=== PATIENT | male | born 1975 | race Caucasian/White ===

== ENCOUNTER 2017-08-15 20:02 | Emergency (ER) | payer BC, OTHER ==
[~2017-08-15] VITALS: Ht 167.6 cm; Wt 98.6 kg
[~2017-08-15 20:02] MED LIST: CITA40TA12 PO
[2017-08-15 20:05] VITALS: Ht 167.6 cm; Wt 98.6 kg
[2017-08-15] MEDS ORDERED: CLINDAMYCIN 150MG HOME PACK PO ONE (20:30)
[2017-08-15] MEDS ORDERED: CLIN300C2 PO (20:36)
--- NOTE | 2017-08-15 20:37 | EMERGENCY ROOM VISIT NOTE ---
History First contact with patient: 20:10 Chief Complaint: DENTAL PAIN Stated Complaint: GUM PAIN Nursing Triage Summary: pain to left bottom, unable to get into dentist History of Present Illness The patient is a 41 year old male who presents to the Emergency Room with complaints of dental pain. The patient reports that he has had some left lower dental pain for the past few weeks which has worsened over the past few days. He reports increased swelling to the left lower gums. He has been trying to find a dentist that takes his insurance. He does report a history of a dental abscess. He states that he has a broken off tooth in the area of the pain and swelling. He denies any fevers/chills, difficulty breathing or difficulty swallowing. He rates his discomfort a 3/10 but does state that he occasionally has more sharp pains. Review of Systems A complete 10 point review of systems was reviewed with the patient with pertinent positives and negatives as per history of present illness. All else were negative. Past Medical/Surgical History Medical Problems: (1) Anxiety (2) Asthma (3) Chronic sinus infection Family History Diabetes mellitus Heart disease Hypertension Social History Smoking Status: Never Smoker Alcohol Use: heavy Marital Status: single Housing Status: lives alone Occupation Status: employed Current/Historical Medications Scheduled Clindamycin Hcl (Cleocin), 300 MG PO QID Physical Exam Vital Signs Date Time Temp Pulse Resp B/P (MAP) Pulse Ox O2 Delivery O2 Flow Rate FiO2 08/15/17 20:05 37.0 122 18 165/79 97 Room Air Physical Exam VITALS: Vitals are noted on the nurse's note and reviewed by myself. Vital signs stable. GENERAL: This is a 41-year-old male, in no acute distress, nondiaphoretic, well- developed well-nourished. EARS: External auditory canals clear, tympanic membranes pearly camacho without erythema or effusion bilaterally. EYES: Pupils equal round and reactive to light and accommodation. MOUTH: Mucous membranes moist. There is a broken off left lower molar with surrounding erythema and edema. There is tenderness to palpation of the left lower gums. No tenderness of the floor of the mouth. No facial swelling. NECK: Supple without nuchal rigidity. No lymphadenopathy. HEART: Regular rate and rhythm without murmurs gallops or rubs. LUNGS: Clear to auscultation bilaterally without wheezes, rales or rhonchi. NEURO: Patient was alert and oriented to person place and time. Medical Decision & Procedures Medical Decision Differential diagnosis includes dental abscess, Stanley's angina, among others. The patient was evaluated as above. There is no evidence of Stanley's angina on exam. The patient will be placed on clindamycin due to penicillin allergy. He was instructed to follow-up with a dentist for definitive care. He will return for facial swelling, fevers, difficulty breathing or difficulty swallowing. He verbalized understanding of my assessment and treatment plan and was discharged home in good condition. Medication Reconcilliation Current Medication List: was personally reviewed by me Blood Pressure Screening Patient's blood pressure: Elevated blood pressure Blood pressure disposition: Elevated BP felt to be situational Impression Primary Impression: Dental infection Departure Information Dispostion Home / Self-Care Condition GOOD Prescriptions Clindamycin Hcl (CLEOCIN) 300 Mg Cap 300 MG PO QID for 9 Days, #36 CAP Prov: Corina Lobo ., MERLY 08/15/17 Referrals No Doctor, Assigned (PCP) Patient Instructions My New [facility] Additional Instructions You have been treated in the Emergency Department for Dental Pain. You were prescribed clindamycin to be taken 4 times daily for a total of 10 days. This is an antibiotic. All antibiotics have the potential to cause diarrhea. Stop this medication and contact a medical provider if you were to develop any significant adverse side effects including: wheezing, shortness of breath, passing out, vomiting, or a diffuse rash. Always take antibiotics as directed and COMPLETE the ENTIRE course regardless of the improvement of your symptoms. For pain control, you can use the following [id number] medicines (if >12 yo): - Regular strength (325mg/tab) Tylenol (acetaminophen) 2 tabs every 4-6 hours as needed. Do not exceed 12 tablets in a 24 hour period. Avoid taking more than 4 grams (4000 mg) of Tylenol per day. This includes any other sources of acetaminophen you may take on a regular basis. - Regular strength (200 mg/tab) Advil (ibuprofen) 1-2 tabs every 4-6 hours as needed. Do not exceed a dose of 3200 mg per day. Refrain from smoking cigarettes or using chewing tobacco until you have been evaluated by your dentist. Keeping beverages lukewarm and consuming soft foods can decrease your pain. Warm compresses over the affected area may offer some relief. You MUST seek evaluation of your dental pain by a dentist following your visit to the Emergency Department. The Emergency Department is not capable of treating dental issues long-term. You should call your dentist as soon as possible to make an appointment for evaluation of your dental pain. Return to the emergency department if you develop the following symptoms despite treatment course outlined above: fever, intractable pain, increased redness, swelling, or purulent discharge.
[2017-08-15 20:54] VITALS: BP 143/93; PULSE 87; TEMP 37; O2SAT 98
== END 2017-08-15 20:56 | disposition home or self-care (01) ==
LOC: C.EDB 20:03 → C.EDD 20:56
DX: K04.7 Periapical abscess without sinus (principal); F41.9 Anxiety disorder, unspecified; J45.909 Unspecified asthma, uncomplicated; Z83.3 Family history of diabetes mellitus; Z82.49 Family history of ischemic heart disease and other diseases of the circulatory system

== ENCOUNTER 2017-09-08 09:25 | Emergency (ER) | payer OTHER ==
[~2017-09-08] VITALS: Ht 167.6 cm; Wt 101.0 kg
[2017-09-08 09:45] VITALS: TEMP 36.8; Ht 167.6 cm; Wt 101.0 kg
[2017-09-08] MEDS ORDERED: BUSP1TAB46 PO (10:19)
[2017-09-08 11:11] LABS: BASO % 0.3 %; BASO ABS # 0.02 K/uL (0-0.2); EOS ABS # 0.13 K/uL (0-0.5); HEMATOCRIT 47.7 % (42-52); HEMOGLOBIN 16.9 g/dL (14.0-18.0); IG# 0.02 K/uL (0.00-0.02); LYMPH % 21.8 %; LYMPH ABS # 1.42 K/uL (1.2-3.4); MEAN CELL VOLUME 90.5 fL (80-100); MEAN CORPUSCULAR HEMOGLOBIN 32.1 pg (25-34); MEAN CORPUSCULAR HGB CONC 35.4 g/dl (32-36); MEAN PLATELET VOLUME 10.1 fL (7.4-10.4); MONO ABS # 0.52 K/uL (0.11-0.59); NEUT % 67.6 %; NEUT ABS # 4.41 K/uL (1.4-6.5); PLATELET COUNT 188 K/uL (130-400); RED CELL DISTRIBUTION WIDTH CV 13.2 % (11.5-14.5); RED CELL DISTRIBUTION WIDTH SD 43.3 fL (36.4-46.3); WHITE BLOOD COUNT 6.52 K/uL (4.8-10.8)
[2017-09-08 11:27] LABS: ALBUMIN 4.1 gm/dl (3.4-5.0); CALCIUM 8.9 mg/dl (8.5-10.1); CREATININE 0.92 mg/dl (0.60-1.40); POTASSIUM 3.9 mmol/L (3.5-5.1)
[2017-09-08 11:30] LABS: TOTAL PROTEIN 8.4 gm/dl (6.4-8.2)
--- NOTE | 2017-09-08 11:46 | DIAGNOSTIC IMAGING REPORT ---
LEFT UPPER QUADRANT ABDOMINAL ULTRASOUND CLINICAL HISTORY: Left upper quadrant abdominal pain. History of situs inversus. COMPARISON STUDY: No previous studies for comparison. FINDINGS: The pancreas was poorly visualized. There is sinus inversus. The liver is of increased echogenicity, a finding suggesting hepatic steatosis. There is a 4.3 cm hypoechoic focus within the medial liver adjacent the gallbladder. A second 16 mm hypoechoic focus is also visualized. While possibly representing focal fatty sparing, other pathologic masses cannot be excluded. If the clinically indicated, an MRI could be obtained in follow-up for further evaluation. There is also a suspected 8 mm hepatic cyst. No gallstones are visualized. There is no gallbladder wall thickening. There is no pericholecystic fluid. There is no ductal dilatation. The common bile duct measures 4 mm. There is no left-sided hydronephrosis IMPRESSION: 1. Situs inversus 2. Ultrasonographically normal gallbladder. No evidence of ductal dilatation 3. Nondiagnostic evaluation of the pancreas 4. Suspected hepatic steatosis. 5. Hepatic hypodensities including a 4.3 cm circumscribed lesion within the medial liver, adjacent to gallbladder. While possibly representing focal fatty sparing, other pathologic lesions cannot be excluded. If deemed clinically indicated, an MRI could be obtained in follow-up for further evaluation Electronically signed by: Liu Cmobs M.D. 09/08/2017 11:45 AM Dictated Date/Time: 09/08/2017 11:39 AM
[2017-09-08] MEDS ORDERED: CHLO25CA10 PO (13:17)
[2017-09-08] MEDS ORDERED: PANT40TA PO (13:20)
--- NOTE | 2017-09-08 13:21 | EMERGENCY ROOM VISIT NOTE ---
History First contact with patient: :52 Chief Complaint: RIB PAIN Stated Complaint: PAIN UNDER RIBS History of Present Illness The patient is a 41 year old male who presents to the Emergency Room with complaints of pain/pressure under his left ribs times one day. The patient describes it as a heavy sensation, and states the area under his ribs feels full. The patient does have a history of situs inversus, and states he is concerned because he is an alcoholic, and has been told he has fatty liver disease. The patient states the symptoms began last night as he was drinking beer. The patient normally drinks 8-12 16 ounce beers per night. He is uncertain that he has ever had any similar symptoms in the past. He states he feels that he has had similar symptoms, but not to this degree. The patient states the symptoms do not seem to be better or worse with food or positioning, however he states as he is sitting here in the emergency department, he is feeling better. The patient does have a history of anxiety, and was started on BuSpar approximately 2 weeks ago. He did not talk to his PCP regarding the alcoholism. The patient states he feels that his anxiety symptoms are worse now than they normally are. He states they do improve in the evenings when he begins drinking. The patient states he has never been a daily drinker, but drinks the 8-12 beers at night, starting approximately 8 PM. He states he is feeling dizzy, lightheaded, short of breath due to the anxiety, shaky, and feels that his heart is racing. He associates this with uncontrolled anxiety. The patient denies any nausea, vomiting, diarrhea, fever, recent illness, cough , congestion, headache, sore throat, otalgia, or other associated symptoms. Review of Systems A complete 10 point review of systems was reviewed with the patient with pertinent positives and negatives as per history of present illness. All else were negative. Past Medical/Surgical History Medical Problems: (1) Anxiety (2) Asthma (3) Chronic sinus infection Family History Diabetes mellitus Heart disease Hypertension Social History Smoking Status: Never Smoker Alcohol Use: heavy Marital Status: single Housing Status: lives alone Occupation Status: employed Current/Historical Medications Scheduled Buspirone Hcl (Buspirone Hcl), 7.5 MG PO BID Chlordiazepoxide (Librium), 25 MG PO DIRECTED Pantoprazole (Protonix), 40 MG PO DAILY Physical Exam Vital Signs Date Time Temp Pulse Resp B/P (MAP) Pulse Ox O2 Delivery O2 Flow Rate FiO2 09/08/17 13:42 92 18 137/82 96 09/08/17 11:53 100 18 141/86 96 09/08/17 09:45 36.8 115 18 139/75 96 Room Air Physical Exam VITALS: Vitals are noted on the nurse's note and reviewed by myself. Vital signs stable. GENERAL: This is a 41-year-old white male, in no acute distress, nondiaphoretic , well-developed well-nourished. SKIN: The skin was without rashes, erythema, edema, or bruising. There is no tenting of the skin. Capillary reflex less than 2 seconds. HEAD: Normocephalic atraumatic. EARS: External auditory canals clear, tympanic membranes pearly camacho without erythema or effusion bilaterally. EYES: Pupils equal round and reactive to light and accommodation. Conjunctivae without injection, sclerae without icterus. Extraocular movements intact. NOSE: Patent, turbinates without inflammation or discharge. No sinus tenderness. MOUTH: Mucous membranes moist. Tonsils are not enlarged. Pharynx without erythema or exudate. Uvula midline. Airway patent. Tongue does not deviate. NECK: Supple without nuchal rigidity. No lymphadenopathy. No thyromegaly. Cervical spine is nontender. No JVD. HEART: Regular rate and rhythm without murmurs gallops or rubs. LUNGS: Clear to auscultation bilaterally without wheezes, rales or rhonchi. No dullness to percussion. No retractions or accessory muscle use. ABDOMEN: Positive bowel sounds x 4. Normal tympanic percussion. Soft, nontender, without masses. The liver does feel enlarged on palpation. There is discomfort with deep palpation of the left upper quadrant, overlying the liver and gallbladder. Peterson sign negative. No guarding or rebound tenderness. MUSCULOSKELETAL: No muscle atrophy, erythema, or edema noted. Full range of motion without joint tenderness in all extremities. No tenderness to palpation. Normal gait. Strength 5/5 throughout. NEURO: Patient was alert and oriented to person place and time. Normal sensation to light and sharp touch. Deep tendon reflexes 2+ throughout. No focal neurological deficits. Medical Decision & Procedures ER Provider Diagnostic Interpretation: LEFT UPPER QUADRANT ABDOMINAL ULTRASOUND CLINICAL HISTORY: Left upper quadrant abdominal pain. History of situs inversus. COMPARISON STUDY: No previous studies for comparison. FINDINGS: The pancreas was poorly visualized. There is sinus inversus. The liver is of increased echogenicity, a finding suggesting hepatic steatosis. There is a 4.3 cm hypoechoic focus within the medial liver adjacent the gallbladder. A second 16 mm hypoechoic focus is also visualized. While possibly representing focal fatty sparing, other pathologic masses cannot be excluded. If the clinically indicated, an MRI could be obtained in follow-up for further evaluation. There is also a suspected 8 mm hepatic cyst. No gallstones are visualized. There is no gallbladder wall thickening. There is no pericholecystic fluid. There is no ductal dilatation. The common bile duct measures 4 mm. There is no left-sided hydronephrosis IMPRESSION: 1. Situs inversus 2. Ultrasonographically normal gallbladder. No evidence of ductal dilatation 3. Nondiagnostic evaluation of the pancreas 4. Suspected hepatic steatosis. 5. Hepatic hypodensities including a 4.3 cm circumscribed lesion within the medial liver, adjacent to gallbladder. While possibly representing focal fatty sparing, other pathologic lesions cannot be excluded. If deemed clinically indicated, an MRI could be obtained in follow-up for further evaluation Electronically signed by: Liu Combs M.D. 09/08/2017 11:45 AM Dictated Date/Time: 09/08/2017 11:39 AM CBC without leukocytosis, anemia, thrombocytopenia. PT, PTT, INR normal. CMP without significant electrolyte, hepatic, renal abnormalities. Alkaline phosphatase was slightly elevated at 128. Lipase was normal. Laboratory Results 09/08/17 10:55 Red Blood Count 5.27, Mean Corpuscular Volume 90.5, Mean Corpuscular Hemoglobin 32.1, Mean Corpuscular Hemoglobin Concent 35.4, Mean Platelet Volume 10.1, Neutrophils (%) (Auto) 67.6, Lymphocytes (%) (Auto) 21.8, Monocytes (%) (Auto) 8.0, Eosinophils (%) (Auto) 2.0, Basophils (%) (Auto) 0.3, Neutrophils # (Auto) 4.41, Lymphocytes # (Auto) 1.42, Monocytes # (Auto) 0.52, Eosinophils # (Auto) 0.13, Basophils # (Auto) 0.02 09/08/17 10:55 Test 09/08/17 10:55 White Blood Count 6.52 K/uL (4.8-10.8) Red Blood Count 5.27 M/uL (4.7-6.1) Hemoglobin 16.9 g/dL (14.0-18.0) Hematocrit 47.7 % (42-52) Mean Corpuscular Volume 90.5 fL (80-100) Mean Corpuscular Hemoglobin 32.1 pg (25-34) Mean Corpuscular Hemoglobin Concent 35.4 g/dl (32-36) Platelet Count 188 K/uL (130-400) Mean Platelet Volume 10.1 fL (7.4-10.4) Neutrophils (%) (Auto) 67.6 % Lymphocytes (%) (Auto) 21.8 % Monocytes (%) (Auto) 8.0 % Eosinophils (%) (Auto) 2.0 % Basophils (%) (Auto) 0.3 % Neutrophils # (Auto) 4.41 K/uL (1.4-6.5) Lymphocytes # (Auto) 1.42 K/uL (1.2-3.4) Monocytes # (Auto) 0.52 K/uL (0.11-0.59) Eosinophils # (Auto) 0.13 K/uL (0-0.5) Basophils # (Auto) 0.02 K/uL (0-0.2) RDW Standard Deviation 43.3 fL (36.4-46.3) RDW Coefficient of Variation 13.2 % (11.5-14.5) Immature Granulocyte % (Auto) 0.3 % Immature Granulocyte # (Auto) 0.02 K/uL (0.00-0.02) Prothrombin Time 10.4 SECONDS (9.0-12.0) Prothromb Time International Ratio 1.0 (0.9-1.1) Activated Partial Thromboplast Time 27.0 SECONDS (21.0-31.0) Partial Thromboplastin Ratio 1.0 Anion Gap 10.0 mmol/L (3-11) Est Creatinine Clear Calc Drug Dose 118.7 ml/min Estimated GFR () 120.2 Estimated GFR (Non- 103.7 BUN/Creatinine Ratio 8.5 (10-20) Calcium Level 8.9 mg/dl (8.5-10.1) Total Bilirubin 0.6 mg/dl (0.2-1) Aspartate Amino Transf (AST/SGOT) 33 U/L (15-37) Alanine Aminotransferase (ALT/SGPT) 75 U/L (12-78) Alkaline Phosphatase 128 U/L (45-117) Total Protein 8.4 gm/dl (6.4-8.2) Albumin 4.1 gm/dl (3.4-5.0) Globulin 4.3 gm/dl (2.5-4.0) Albumin/Globulin Ratio 1.0 (0.9-2) Lipase 160 U/L (73-393) ED Course The patient was seen and evaluated as above. IV access was obtained, labs drawn, ultrasound ordered. I did contact ultrasound to advise them of the patient's history of sinus inversus and my concern for gallbladder/liver disease on the left upper quadrant. I reevaluated the patient and discussed all results with him at bedside. I did consult with Dr. Galindo regarding the patient's symptoms and workup. I again discussed the case with the patient, did recommend alcohol cessation. The patient is in agreement, and willing to attempt medication to help with withdrawal symptoms. I spoke with Johnathan, pharmacist, regarding Librium prescription. The patient will be started on a Librium taper today/tomorrow. The family service caseworker did schedule the patient appointment with his PCP for Friday morning. This is the earliest appointment available. I did again discuss discharge instructions and did offer the patient inpatient rehabilitation, and he declines. The patient is in agreement with all discharge instructions and plan of care at this time. He was discharged home in good condition. Medical Decision This is a 41-year-old male patient presents today complaining of multiple symptoms including fullness of the left upper quadrant, increased anxiety, increased dizziness, shakiness, and dyspnea. The patient states he was recently started on BuSpar, and suspects he is having side effects of medication. I do suspect the patient is experiencing withdrawal symptoms. There was a lesion noted on the liver on ultrasound, an MRI was recommended. I do not feel that this will affect the plan of care at this time, and I feel that the lesion can be addressed outpatient by the patient's PCP and/or senior court office assistant. I spoke with the patient regarding alcohol cessation. He is in agreement, as he is very concerned that his alcoholism will kill him. The patient's dizziness , shakiness, and anxiety symptoms are associated with alcohol withdrawal. The patient states all symptoms improved in the evening when he starts drinking. I suspect that the patient is experiencing withdrawal to the day. The patient states this makes sense and he is suspicious for the same thing. He is in agreement to start Librium to help try to control his symptoms. The patient did also complain of some mild reflux, which could be contributing to some of his abdominal discomfort. He will be started on Protonix to help decrease acid production. Differential diagnosis includes hepatic disease, hepatic steatosis, cholecystitis, pancreatitis, gastritis, esophagitis, cardiac disorder, anxiety, medication reaction, alcoholism, alcohol withdrawal, malignancy, and others Medication Reconcilliation Current Medication List: was personally reviewed by me Blood Pressure Screening Patient's blood pressure: Normal blood pressure Impression Primary Impression: Alcohol abuse Additional Impressions: Alcohol withdrawal Liver lesion Left upper quadrant pain Departure Information Dispostion Home / Self-Care Condition GOOD Prescriptions Pantoprazole (Protonix) 40 Mg Tab 40 MG PO DAILY, #30 TAB Prov: Clementina Kate, PAShelly 09/08/17 Chlordiazepoxide (Librium) 25 Mg Cap 25 MG PO DIRECTED, #19 CAP 50 mg 4 times a day 4 doses 50 mg 3 times a day 3 doses 25 mg 3 times a day 3 doses 25 mg twice a day 2 doses Prov: Sue Galindo M.D. 09/08/17 Referrals Carl Guillaume M.D. (PCP) Patient Instructions Alcohol Withdrawal - [facility], ED Alcohol Abuse, ED Gastritis, ED Withdrawal Alcohol , [facility] Additional Instructions You seen in the emergency room and stay for abdominal pain. I do suspect some of your anxiety symptoms are related to alcoholism and alcohol withdrawal. Please follow-up with your primary care provider at your scheduled appointment on Friday at 8:30 AM for further management of this disorder. As discussed, there was a hypoechoic lesion noted on your liver on ultrasound. This may need to have an MRI performed to further evaluate the lesion. Please speak with your primary care provider regarding this testing outpatient and/or GI referral. Take Librium as prescribed to help with anxiety/withdrawal symptoms. I suspect a gastritis component associated with the abdominal pain and reflux. Please take Protonix as prescribed. You may want to consider rehabilitation programs regarding alcohol abuse. Follow-up with your primary care provider on Friday. Return to the emergency department for worsening palpitations, racing heart rate , suicidal or homicidal ideations, medication side effects, worsening abdominal pain, other concerning symptoms. Work Instructions Return To Work: 1 week Problem Qualifiers Additional Impressions: Alcohol withdrawal Complication of substance-induced condition: uncomplicated Qualified Codes: F10.230 - Alcohol dependence with withdrawal, uncomplicated
[2017-09-08 13:42] VITALS: BP 137/82; PULSE 92; O2SAT 96
== END 2017-09-08 13:43 | disposition home or self-care (01) ==
LOC: C.EDB 09:26
DX: F10.239 Alcohol dependence with withdrawal, unspecified (principal); K76.9 Liver disease, unspecified; R10.12 Left upper quadrant pain; F41.9 Anxiety disorder, unspecified; Q89.3 Situs inversus; Z83.3 Family history of diabetes mellitus; Z82.49 Family history of ischemic heart disease and other diseases of the circulatory system

== ENCOUNTER → 2017-10-03 | Outpatient (CLI) | payer OTHER ==
[~2017-10-03] MED LIST changes: +BUSP1TAB46 PO; +CHLO25CA10 PO; -CITA40TA12 PO; +GADOXETATE DISODIUM (NON-WT BASED PROCEDURE) IV PRN; +PANT40TA PO
--- NOTE | 2017-10-03 14:26 | DIAGNOSTIC IMAGING REPORT ---
LIVER MRI HISTORY: Evaluate liver lesion. TECHNIQUE: Multiplanar multisequence MRI of the liver was performed both before and after the intravenous administration of 10 cc of Eovist contrast. COMPARISON STUDY: Abdominal ultrasound 09/08/2017. FINDINGS: Situs inversus. Out of phase imaging demonstrates near uniform decreased signal intensity within the liver consistent with hepatic steatosis. However, there is a 3.6 cm round area within the medial liver which does not suppress consistent with focal fatty sparing. This corresponds to the abnormality seen on the prior abdominal ultrasound. No hepatic masses identified. The gallbladder, spleen, adrenal glands, and pancreas are unremarkable. There is a 1.5 cm cyst within the upper pole of the right kidney. A 3 mm cyst within the left kidney. No retroperitoneal lymphadenopathy. The visualized loops of bowel show no wall thickening or obstruction. IMPRESSION: 1. Situs inversus. 2. Hepatic steatosis with a 3.6 cm area of focal fatty sparing within the medial aspect of the liver. This corresponds to the prior abdominal ultrasound abnormality. Electronically signed by: Aroldo Shi M.D. 10/03/2017 2:25 PM Dictated Date/Time: 10/03/2017 2:12 PM
== END | disposition home or self-care (01) ==
LOC: C.MRIBC 12:43
PROVIDERS: ATTEND Physician Assistant Medical
DX: K76.0 Fatty (change of) liver, not elsewhere classified (principal); Q89.3 Situs inversus